=== PATIENT | male | born 2000 | race Caucasian/White ===

== ENCOUNTER 2020-05-13 09:46 | Inpatient (IN) ==
[2020-05-13 10:01] VITALS: BMI 40.6
[2020-05-13] MEDS ORDERED: LEVAQUIN PREMIX IV 750 MG 750 MG/150 ML BAG IV ONE ×2 (10:55→11:16)
[2020-05-13] MEDS ORDERED: SOLU-Medrol 125 MG VIAL IVP ONE (10:55)
[2020-05-13] MEDS ORDERED: NS 1000 ML 1,000 ML IV ONE ×3 (10:55→14:26)
--- NOTE | 2020-05-13 10:55 | DR.SOBA ---
HPI Time Seen Time Seen by Provider: 05/13/20 10:53 Primary Care Physician Primary Care Physician: TINO BARNARD HPI Comment HPI Comment: PATIENT COMPLAINS OF A PRODUCTIVE COUGH, YELLOW GREEN SPUTUM, DYSPNEA X 5 DAYS WITH NO IMPROVEMENT AFTER ANTIBIOTIC ZITHROMAX X 5 DAYS, PREDNISONE AND INHALERS. HAS LOW GRADE FEVER, DENIES CHEST PAIN ARTHALGIAS. Complaints Chief Complaint Doctors Comments: PRODUCTIVE COUGH, DYSPNEA Chief Complaint:: PT HAS BEEN TREATED FOR BRONCHITIS FOR ONE WEEK BY PCP. PT HAS BEEN TREATED WITH ZITHROMAX, PREDNISONE, BREATHING TREATMENTS AND COUGH MEDICINE AND HAS CONTINUED TO HAVE INCREASING SHORTNESS OF BREATH WITH EXERTION ANDPRODUCTIVE COUGH WITH GREEN SPUTUM. COVID-19 Coronavirus risk:travel/contact w/high risk person: Yes Has patient experienced Coronavirus symptoms: Yes Coronavirus symptoms experienced: Fever Reviewed Nurses Notes Reviewed: Yes Source History Provided: Patient Mode of Arrival Mode of Arrival: Ambulatory Timing Onset of Chief Complaint: 05/07/20 Context PE Risk Factors:: None History of:: Asthma If Cough Cough: Productive and Yellow PMH PMH Past Medical History: Yes Past Medical History: Asthma Past Surgical History: No Family History History of Family Medical Conditions: Yes Family Medical History: [place] and Coronary Artery Disease Social History Does patient currently use any type of tobacco product: No Have you used tobacco products in the last 12 months: No Type of Tobacco Use: None Does any household member use tobacco: No Alcohol Use: None Do you use any recreational Drugs:: No Lives With: Family Lives Where: Home Infectious screening In the last 2 months have you had wt loss of >10#?: NO Have you had fever, night sweats or hemotysis?: No Have you traveled outside the country in the last 6 months?: No Isolation: Droplet ROS Review of Systems Constitutional: See HPI Eyes: No Symptoms Reported Respiratoy: See HPI and Productive Cough Cardiovascular: No Symptoms Reported Genitourinary: No Symptoms Reported Hematologic/Lymphatic: No Symptoms Reported Endocrine: No Symptoms Reported Psychiatric: No Symptoms Reported PE Vital Signs Vitals: Temperature 98.0 F Pulse Rate [Left Radial] 125 Pulse Rate 126 Respiratory Rate 20 Blood Pressure [Left Arm] 149/88 Blood Pressure 170/94 O2 Sat by Pulse Oximetry 92 General Limitations: No Limitations General Appearance: Alert and In No Apparent Distress Head Head Exam: Normal Inspection Eyes Eye exam: Normal Appearance, PERRL and EOMI ENT ENT Exam: Normal Exam, Normal Oropharynx and Normal External Ear Exam Neck Neck Exam: Normal Inspection and Full ROM Chest Chest Inspection: Normal Inspection and Symmetric Chest Wall Rise Respiratory Respiratory Exam: Normal Lung Sounds Bilat (EXCEPT OF DECREASE BREATH SOUNDS AT BASES) Respiratory Exam: Bilateral: Clear to Auscultation, Left: Decreased Breath Sounds and Right: Decreased Breath Sounds Cardiovascular Cardiovascular Exam: Regular Rate, Normal Rhythm and Tachycardia Abdominal Exam Abdominal Exam: Normal Inspection, Normal Bowel Sounds and Soft Extremities Extremities Exam: Normal Inspection Back Back Exam: Normal Inspection Neurologic Neurological Exam: Alert and Oriented X3 Psychiatric Psychiatric Exam: Normal Affect and Normal Mood Skin Skin Exam: Warm, Dry, Intact and Normal Color MDM Differential Diagnosis Differential Diagnosis: Asthma, Pneumonia and Pulmonary embolism Differential Diagnosis Comment:: PNEUMONIA COURSE Treatment Treatment: PLACED ON SEPSIS PROTOCOL, IV 3 LITERS OVER 4 HOURS, AFTER 2 SETS OF BLOOD CULTURES LEVAQUIN 750MG IVPB Consultation Call Returned: 13:54 Consultation Comments: DISCUSSED WITH DR OCAMPO AT 1354 FOR ADMIT ROR Labs Reviewed Laboratory Results Reviewed?: Yes Result Diagrams: 05/13/20 11:13 05/13/20 11:13 Laboratory: WBC 21.8 X10^3/uL (3.6-10.0) H 05/13/20 11:13 RBC 5.27 X10^6/uL (4.7-6.0) 05/13/20 11:13 Hgb 15.0 g/dL (13.5-18.0) 05/13/20 11:13 Hct 45.4 % (42.0-54.0) 05/13/20 11:13 MCV 86.2 fL (80.0-100.0) 05/13/20 11:13 MCH 28.4 pg (27.0-34.0) 05/13/20 11:13 MCHC 33.0 g/dL (33.0-35.0) 05/13/20 11:13 RDW 13.1 % (11.6-16.5) 05/13/20 11:13 Plt Count 378 X10^3/uL (150.0-450.0) 05/13/20 11:13 Plt Count Comment Adequate (ADEQUATE) 05/13/20 11:13 MPV 8.3 fL (7.4-11.0) 05/13/20 11:13 Neut % (Auto) 80.8 % (42.0-75.0) H 05/13/20 11:13 Lymph % (Auto) 10.3 % (21.0-51.0) L 05/13/20 11:13 [place] % (Auto) 8.5 % (0.0-13.0) 05/13/20 11:13 Eos % (Auto) 0.0 % (0.9-2.9) L 05/13/20 11:13 Baso % (Auto) 0.4 % (0.2-1.0) 05/13/20 11:13 Neut # (Auto) 17.6 x10^3/uL (2.2-4.8) H 05/13/20 11:13 Lymph # (Auto) 2.3 X10^3/uL (1.3-2.9) 05/13/20 11:13 [place] # (Auto) 1.8 x10^3/uL (0.3-0.8) H 05/13/20 11:13 Eos # (Auto) 0.0 x10^3/uL (0.0-0.2) 05/13/20 11:13 Baso # (Auto) 0.1 X10^3/uL (0.0-0.1) 05/13/20 11:13 Absolute Nucleated RBC 0.0 /100WBC 05/13/20 11:13 Total Counted 100 05/13/20 11:13 Neutrophils % (Manual) 80 % (39-76) H 05/13/20 11:13 Band Neutrophils % 1 % (0-10) 05/13/20 11:13 Lymphocytes % (Manual) 10 % (13-43) L 05/13/20 11:13 Monocytes % (Manual) 9 % (4-9) 05/13/20 11:13 Plt Morphology Comment Normal (NORMAL) 05/13/20 11:13 RBC Morphology Normal (NORMAL) 05/13/20 11:13 D-Dimer > 20.00 ug/ml (0.0-0.57) H* 05/13/20 11:13 Sodium 135 mmol/L (136-145) L 05/13/20 11:13 Corrected Sodium 136 mmol/L (136-145) 05/13/20 11:13 Potassium 3.9 mmol/L (3.5-5.1) 05/13/20 11:13 Chloride 102 mmol/L (98-107) 05/13/20 11:13 Carbon Dioxide 19.8 mmol/L (21-32) L 05/13/20 11:13 BUN 13 mg/dL (7-18) 05/13/20 11:13 Creatinine 0.94 mg/dL (0.70-1.30) 05/13/20 11:13 Est GFR (MDRD) Af Amer > 60 (>60) 05/13/20 11:13 Est GFR (MDRD) Non-Af > 60 (>60) 05/13/20 11:13 Glucose 150 mg/dL (65-99) H 05/13/20 11:13 Lactic Acid 3.0 mmol/L (0.4-2.0) H 05/13/20 11:13 Calcium 8.7 mg/dL (8.5-10.1) 05/13/20 11:13 Corrected Calcium 9.8 mg/dL (8.5-10.1) 05/13/20 11:13 Magnesium 2.0 mg/dL (1.7-2.9) 05/13/20 11:13 Total Bilirubin 0.80 mg/dL (0.2-1.0) 05/13/20 11:13 AST 44 Units/L (15-37) H 05/13/20 11:13 ALT 54 Units/L (12-78) 05/13/20 11:13 Alkaline Phosphatase 80 Units/L (46-116) 05/13/20 11:13 Troponin I 0.51 ng/mL (0-1.5) 05/13/20 11:13 Total Protein 6.9 g/dL (6.4-8.2) 05/13/20 11:13 Albumin 2.6 g/dL (3.4-5.0) L 05/13/20 11:13 Globulin 4.3 g/dL (2.5-4.5) 05/13/20 11:13 Albumin/Globulin Ratio 0.6 Ratio (1.1-2.1) L 05/13/20 11:13 SARS CoV-2 RNA Rapid KATELYN Negative (NEGATIVE) 05/13/20 11:03 XRAY X-ray Results: PORTABLE CHEST XRAY POSITIVE FOR MULTIFOCAL INFILTRATES, CTA OF CHEST C/W NO EVIDENCE OF PULMONARY EMBOLISM, BILAT RIGHT GREATER THAN LEFT INFILTRATES EKG Rate: 126 [place]yle: Normal Rhythm: ST ST: Nonsp Opioid Opioid Risk Tool Total: 0 Total Score Risk Category: Low Risk Copyright: Tim ZAMBRANO predicting aberrant behaviors Diagnosis Discharge Problem: Pneumonia
--- NOTE | 2020-05-13 11:15 | RAD ---
HISTORYCOUGH, SOB, BRONCHITISSTUDYCHEST, 1 VIEWCOMPARISONNoneFINDINGSThe trachea is midline. The cardiac silhouette is unremarkable . The lungs demonstrate airspace disease throughout the right lung and left lower lobe compatible multifocal pneumonia. The bony thorax is unremarkable.IMPRESSIONMultifocal pneumonia as above.Electronically signed by: MARY KATE MCKAY (May 13, 2020 11:13:39)
[2020-05-13] MEDS ORDERED: NS 1000 ML 1,000 ML ONE ×3 (11:16→14:22)
[2020-05-13] MEDS ORDERED: SOLU-Medrol 125 MG VIAL ONE (11:16)
[2020-05-13 11:45] LABS: BASOPHILS # (AUTO) 0.1 X10^3/uL (0.0-0.1); BASOPHILS % (AUTO) 0.4 % (0.2-1.0); HEMATOCRIT 45.4 % (42.0-54.0); LYMPHOCYTES # (AUTO) 2.3 X10^3/uL (1.3-2.9); LYMPHOCYTES % (AUTO) 10.3 % (21.0-51.0); MEAN CORPUSCULAR HEMOGLOBIN 28.4 pg (27.0-34.0); MEAN CORPUSCULAR VOLUME 86.2 fL (80.0-100.0); MEAN PLATELET VOLUME 8.3 fL (7.4-11.0); MONOCYTES # (AUTO) 1.8 x10^3/uL (0.3-0.8); MONOCYTES % (AUTO) 8.5 % (0.0-13.0); NEUTROPHILS # (AUTO) 17.6 x10^3/uL (2.2-4.8); NEUTROPHILS % (AUTO) 80.8 % (42.0-75.0); PLATELET COUNT 378 X10^3/uL (150.0-450.0); RED BLOOD COUNT 5.27 X10^6/uL (4.7-6.0); RED CELL DISTRIBUTION WIDTH 13.1 % (11.6-16.5); WHITE BLOOD COUNT 21.8 X10^3/uL (3.6-10.0)
[2020-05-13 12:03] LABS: ALANINE AMINOTRANSFERASE 54 Units/L (12-78); ALBUMIN 2.6 g/dL (3.4-5.0); ALKALINE PHOSPHATASE 80 Units/L (46-116); ASPARTATE AMINO TRANSFERASE 44 Units/L (15-37); BLOOD UREA NITROGEN 13 mg/dL (7-18); CALCIUM 8.7 mg/dL (8.5-10.1); CARBON DIOXIDE 19.8 mmol/L (21-32); CHLORIDE 102 mmol/L (98-107); COR CA(FOR HYPOALB) 9.8 mg/dL (8.5-10.1); COR NA(FOR HYPERGLY) 136 mmol/L (136-145); CREATININE 0.94 mg/dL (0.70-1.30); SODIUM 135 mmol/L (136-145); TOTAL PROTEIN 6.9 g/dL (6.4-8.2); TROPONIN I 0.51 ng/mL (0-1.5); eGFR NON BLACK RACES > 60 (>60)
[2020-05-13 12:37] LABS: BAND NEUTROPHILS % 1 % (0-10); PLATELET MORPHOLOGY COMMENT NORMAL (NORMAL)
[2020-05-13] MEDS ORDERED: NS 100 ML IV 100 ML IV ONE (12:49)
--- NOTE | 2020-05-13 13:33 | CT ---
HISTORYDYSPNEA/ ELEVATED DDIMERSTUDYCTA CHESTCOMPARISONPortable chest May 13, 2020 at 11:02 a.m. revealing cardiomegaly and infiltrate in the right mid and lower lung fieldTECHNIQUEMultiple axial images of the chest were obtained from the thoracic inlet to the upper abdomen after the administration of IV contrast. 3D reconstructions utilizing axial MIPS imaging was performed and reviewed. Dose reduction techniques including Automated Exposure Control (AEC) and adjustment of mA and kV were utilized.FINDINGSThe tracheobronchial tree tapers normally without obstructing or endobronchial lesions. The esophagus is normal without dilatation or wall thickening. The thyroid gland is normal. There is residual thymic tissue in the anterior mediastinum. The mediastinum does not demonstrate significant pathological lymphadenopathy. Small lymph nodes are seen anterior to the aortic arch and anterior to the jesse probably reactive. These lymph nodes are not enlarged by CT size criteria. There is no paracardial effusion observed. The thoracic aorta is normal in its contour without evidence for aneurysmal dilatation. The central pulmonary arterial system does not demonstrate central filling defects to suggest pulmonary emboli. No filling defects are seen in segmental or subsegmental pulmonary arteries i.e. there is no evidence of pulmonary thromboembolism.Evaluation of the lung parenchyma does demonstrate bilateral diffuse infiltrates right upper lobe minimally in the basilar segments of the left upper lobe, right middle right lower lobe and left lower lobe. No nodules masses or effusions are observed.. No pulmonary nodule or mass can be identified. The bony thorax is unremarkable in its appearance . The visualized portions of the upper abdomen are grossly unremarkable .IMPRESSIONBilateral right greater than left multifocal infiltrates consistent with pneumonia. There is no effusion. There are small lymph nodes in the mediastinum probably reactive.There is no evidence of pulmonary thromboembolism.The upper abdomen is normal.Electronically signed by: MELISSA ORTIZ (May 13, 2020 13:30:18)
[2020-05-13] MEDS ORDERED: TYLENOL ELIXIR 325 MG UDC PO PRN (15:00)
[2020-05-13] MEDS: NS 1000 ML 1,000 ML IV SCH ×2 (16:33→19:38)
[2020-05-13] MEDS ORDERED: XOPENEX 1.25 MG/3 ML NEBULE NEB ONE (16:48)
[2020-05-13] MEDS: XOPENEX 1.25 MG/3 ML NEBULE NEB SCH (16:50)
[2020-05-13] MEDS ORDERED: MUCINEX DM PO SCH (21:00)
[2020-05-13] MEDS ORDERED: RESTORIL CAP 30 MG PO PRN (23:07)
[2020-05-14] MEDS: NS 1000 ML 1,000 ML IV SCH ×2 (00:09→03:14)
[2020-05-14] MEDS ORDERED: ROBITUSSIN DM PO PRN (00:30)
[2020-05-14] MEDS: XOPENEX 1.25 MG/3 ML NEBULE NEB SCH ×2 (00:30→04:59)
[2020-05-14] MEDS ORDERED: ROBITUSSIN DM ONE (00:32)
[2020-05-14 04:12] LABS: ABG BASE EXCESS -5.2 mmol/L (-2.0-2.0); ABG HCO3 18.8 mmol/L (22-26)
[2020-05-14 04:13] LABS: ABG ALLEN TEST POS
[2020-05-14] MEDS ORDERED: ATIVAN TAB 1 MG PO PRN (04:30)
[2020-05-14] MEDS ORDERED: ATIVAN TAB 1 MG ONE (04:34)
[2020-05-14] MEDS ORDERED: ZEMURON 50 MG VIAL ONE (05:38)
[2020-05-14] MEDS ORDERED: BRIDION ONE (05:38)
[2020-05-14] MEDS ORDERED: THIAMINE HCL INJ IVP STA (06:08)
[2020-05-14] MEDS ORDERED: ZOSYN VIAL 4.5 GRAMS 4.5 G in NS 100 ML IV + SPIKE MINIBAG* 100 ML IV SCH (06:23)
--- NOTE | 2020-05-14 06:30 | RAD ---
HISTORYF/U TO PREVIOUS STUDYSTUDYCHEST, 1 [id number] trachea is midline. The cardiac silhouette is stable. Airspace disease noted throughout the right lung. Is there is worsening infiltrate within the left lung. No pneumothorax.. The bony thorax is unremarkable.IMPRESSIONBilateral pneumonic infiltrates, increased on the left from previous 1Electronically signed by: Nick Hilario (May 14, 2020 06:28:56)
[2020-05-14] MEDS ORDERED: ASCORBIC ACID INJ MULTI-DOSE VIAL 3,000 MG in NS 50 ML IV 50 ML IV ONE (07:00)
[2020-05-14] MEDS ORDERED: SOLU-Cortef INJ IVP SCH (08:00)
[2020-05-14] MEDS ORDERED: LEVAQUIN PREMIX IV 750 MG 750 MG/150 ML BAG IV SCH (09:00)
[2020-05-14] MEDS ORDERED: ASCORBIC ACID INJ MULTI-DOSE VIAL 3,000 MG in NS 50 ML IV 50 ML IV SCH (15:00)
[2020-05-14 21:44] VITALS: BP 180/117
== END 2020-05-14 07:35 | disposition expired | DRG 208 ==
LOC: ER 09:56 → MED/SURG 15:00
PROVIDERS: ADMIT Obstetrics & Gynecology Obstetrics; ATTEND Obstetrics & Gynecology Obstetrics
DX: R00.0 Tachycardia, unspecified; Z20.822 Contact with and (suspected) exposure to COVID-19; J15.9 Unspecified bacterial pneumonia; J96.00 Acute respiratory failure, unspecified whether with hypoxia or hypercapnia